=== PATIENT | female | born 1945 | race Caucasian/White ===

== ENCOUNTER 2016-12-17 07:04 | Day surgery (SDC) | payer MEDICARE, OTHER ==
--- NOTE | 2016-12-10 10:18 | HP ---
Chief Complaint - Chief Complaint Date of Service: 12/10/16 Chief Complaint: family history of colon cancer History of Present Illness: 71 yo female who needs her colonoscopy. Both her parents of colon cancer. No changes in bowels, no weight loss and no blood in stools. No other bowel issues, but recently developed shingles. No antiviral meds, just tramadol. - Patient's Past Medical History Patient History - Medical: Fibromyalgia, Osteoarthritis, Seizures - none since age 14 Patient History - Cardiac/Respiratory: No pertinent hx Patient History - Cancer: No Hx of Cancer Patient History - Surgical Procedures: Cholecystectomy, Colonoscopy, , Other - neck surgery last summer 2015 double discectomy Patient History - Other: None LMP (females 10-50): Menopausal - Family History Family History:: no untoward family reactions to anesthesia, no familial bleeding tendencies, no family history of clotting disorders - Family History Mother Family History - Medical: Family History - Cancer: Colon Father Family History - Medical: Family History - Cancer: Colon - Social History Living Situations: spouse Abuse History: No History of abuse Psych History: No pertinent hx Does anyone smoke in the home?: No Alcohol Use: none Drug Use: none - Immunizations Immunizations Up to Date: Yes Hx Pneumococcal Vaccination: Yes History of Influenza Vaccine: No Review Of Systems (GEN) - Review of Systems Generalized/Overall Review: Absent: Weakness, Fatigue, Weight loss, Weight gain EENTM: Absent: Blurred Vision Respiratory: Absent: Cough, Shortness of Breath, Orthopnea, Wheezing Allergies/Adverse Reactions: Allergies Allergy/AdvReac Type Severity Reaction Status Date / Time celecoxib [From Celebrex] Allergy Mild HIVES, Verified 02/15/16 09:46 NUMBNESS Home Medications: HOME MEDICATIONS Acetaminophen [Tylenol] 1,500 mg PO Q8H 02/15/16 [Last Taken Unknown] traMADol HCL [Ultram] 50 mg PO HS PRN 12/10/16 [Last Taken Unknown] Exam - Exam Vital Signs: Vital Signs - Last Taken Temp 36.6 C 12/10/16 Pulse 75 Resp 14 BP 140/80 12/10/16 Pulse Ox Ht 5'6 Wt 78kg Constitutional: Present: Alert, Oriented x3, Cooperative, Well developed, Well nourished, No distress ENT Exam: Present: normal ENT inspection, hearing grossly normal Eye Exam: bilateral eye: normal inspection Neck: Present: non-tender Breasts: Present: Exam deferred Respiratory: Present: lungs clear, normal breath sounds, no respiratory distress , no accessory muscle use Cardiovascular/Chest: Present: normal peripheral pulses, regular rate, rhythm, no edema, no murmur Abdomen: Present: Normal bowel sounds, soft, nontender /Rectal: Present: Exam deferred Extremity: Present: normal range of motion, normal inspection Skin Exam: Present: normal color, warm/dry, no cyanosis Neurologic: Present: no motor/sensory deficits, alert, normal mood/affect, oriented x 3 Appearance: Present: appropriate appearance, appropriate insight, neat, no memory impairment Eye contact: Present: cooperative, good eye contact, normal speech Thoughts: Present: normal thought pattern Assessment/Plan - Narrative Narrative: 71 yo female with strong family history of colon cancer, last colonoscopy in 2011. No blood in stools and no weight loss or abdominal complaints. Discussed the [facility] for a colonoscopy and also the prep. She received the booklet and is scheduled at her convenience next week. - Assessment/Plan (1) Screening for colon cancer Problem: Acute (2) Family history of colon cancer Problem: Chronic (3) Degenerative disc disease, cervical Problem: Chronic (4) Shingles Problem: Acute Qualifiers: Herpes zoster complications: without complications Qualified Code(s): B02.9 - Zoster without complications
[~2016-12-17 07:04] MED LIST: RINGERS SOLUTION,LACTATED 1,000 ML IV PRN
[2016-12-17] MEDS ORDERED: RINGERS SOLUTION,LACTATED 1,000 ML IV PRN (09:07)
--- NOTE | 2016-12-17 09:11 | OR ---
Operative Report - Dictated Report Narrative: DATE OF PROCEDURE: 12/17/2016 PREOPERATIVE DIAGNOSIS: #1 Screening colonoscopy #2 family history of colon cancer POSTOPERATIVE DIAGNOSIS: #1 Screening colonoscopy #2 family history of colon cancer #3 sigmoid diverticulosis #4 small polyp at base of cecum near the appendiceal orifice pending final pathology #5 small polyp of upper rectum pending final pathology OPERATION: Colonoscopy with polypectomy SURGEON: Dannie Blank M.D. [facility] ANESTHESIA : Joy Thomas CRNA sedation INDICATIONS: This is a 71 year old female who presents for a screening colonoscopy. I have discussed the risks, benefits, indications, and contraindications for colonoscopy with the possibility of biopsy and/or polypectomy. She understands, agrees, and wishes to proceed. She has undergone a SUPREP and has tolerated it well. PROCEDURE: The patient was brought to the operating theater and placed into the left lateral decubitus position. The patient underwent sedation per anesthesia , and a digital rectal exam was performed. This was noted to be unremarkable. The patient was noted to have no internal or external hemorrhoids. The Olympus video colonoscope was introduced and advanced into the rectum. The rectum was normal in appearance. The scope was then advanced through the sigmoid, where extensive diverticular disease was noted. The scope was then advanced to the cecum using standard reduction techniques. The appendiceal orifice was noted. The ileocecal valve was noted. Near the appendiceal orifice , was a small flat irregularly bordered polyp, approximately 5 mm in greatest dimension. Picture was taken. It was removed with 3 bites of the cold biopsy forceps. The prep appeared to be excellent with a [employer] prep score of 9. The scope was withdrawn slowly as the ascending, transverse, descending, and sigmoid colon were examined in a circumferential fashion. The scope was brought back into the rectum where it was retroflexed in the lower rectum was examined. In the upper rectum, there is a small 2-3 mm polyp, that was removed with single bite of the cold biopsy forceps. There was no bleeding noted. The air was decompressed, and the scope was then removed. Withdrawal time was 11 minutes. POSTOPERATIVE CONDITION: The patient was awakened and taken to the ambulatory surgery center in good condition. No complications were encountered. FINDINGS: Diverticulosis of sigmoid colon, small polyp base of cecum, small polyp of upper rectum. Specimens: Two EBL: 0 The findings were discussed with the patient and her . I recommend a follow-up colonoscopy in 5 years for screening purposes. We will call in 48 hours with the biopsy results. Diverticulosis booklet was given and reviewed.
[2016-12-17 10:06] VITALS: BP 118/69
== END 2016-12-17 07:05 | disposition home or self-care (01) ==
LOC: AMB 07:04
PROVIDERS: ATTEND Surgery
PROC: 0DBP8ZX Excision of Rectum, Via Natural or Artificial Opening Endoscopic, Diagnostic (ICD-10-PCS; 2016-12-17)
PROC: 0DBH8ZX Excision of Cecum, Via Natural or Artificial Opening Endoscopic, Diagnostic (ICD-10-PCS; principal; 2016-12-17 08:35)
DX: Z12.11 Encounter for screening for malignant neoplasm of colon (principal); D12.0 Benign neoplasm of cecum; K62.1 Rectal polyp; K57.30 Diverticulosis of large intestine without perforation or abscess without bleeding; Z68.28 Body mass index [BMI] 28.0-28.9, adult; Z80.0 Family history of malignant neoplasm of digestive organs